=== PATIENT | male | born 1975 | race Caucasian/White ===

== ENCOUNTER 2022-04-27 17:09 | Emergency (ER) | payer BC, SELFPAY ==
[2022-04-27 17:23] VITALS: PULSE 65; RESP 14; TEMP 36.8; O2SAT 99
--- NOTE | 2022-04-27 17:44 | ED.BACK ---
HPI - Back Pain/Injury General Chief Complaint: Back Pain/Injury Stated Complaint: back pain Time Seen by Provider: 04/27/22 17:32 History of Present Illness HPI Narrative: Patient is a 47-year-old male here for evaluation of back pain. Patient was seated, bent over the kitchen table, helping his son with his home life, when he felt his back give out . Patient states the pain is present in his right lower back and occasionally radiate down his right lower extremity. He describes it as a sharp shooting pain. Has been able to take a few steps but states it is painful. Patient took a [place] and methocarbamol without significant relief. He has had a history of similar sensation for months ago, saw an orthopedist at [facility], was given Medrol Dosepak and methocarbamol with relief of his symptoms. He had an x-ray but has not yet had an MRI, was told if the pain comes back he should likely get more imaging. Patient denies any saddle anesthesia, incontinence or retention of bowel or bladder, fevers or chills, IV drug use. Related Data Allergies Allergy/AdvReac Type Severity Reaction Status Date / Time No Known Allergies Allergy Verified 04/27/22 18:03 Review of Systems Review of Systems: Gen: Denies fevers or chills Eyes: Denies eye pain or visual change ENT: Denies congestion Respiratory: Denies shortness of breath or cough CV: Denies chest pain or palpitations GI: Denies abdominal pain nausea, emesis or diarrhea denies burning, urgency, frequency or hematuria Musculoskeletal: Reports back pain. Neuro: Denies numbness, tingling, weakness or focal weakness Skin: Denies rash Except as documented, all other systems reviewed and negative Exam Narrative: APPEARANCE: Seated in wheelchair, nontoxic-appearing Head: Normocephalic and atraumatic. EYES: PERRLA/EOMI, conjunctivae clear NOSE: No nasal drainage EARS: External ear normal in appearance THROAT: Oropharynx is clear. Mucous membranes are moist. NECK: Supple. No adenopathy, no masses. RESPIRATORY: Airway patent, respirations nonlabored. Clear to auscultation bilaterally, no rales, rhonchi, wheezing. CARDIOVASCULAR: Regular rate and rhythm without murmurs, rubs, or gallops. ABDOMINAL: Normoactive bowel sounds. Soft, nontender, nondistended. No rebound tenderness or guarding. MUSCULOSKELETAL: No bony tenderness to midline of C, T or L-spine. Moving all extremities. NEURO: Normal speech. No focal neurologic deficits. SKIN: Skin is warm and dry. No rashes. PSYCHIATRIC: Normal affect/mood. Course Vital Signs Vital signs: Vital Signs Temperature 98.2 F 04/27/22 17:23 Pulse Rate 65 04/27/22 17:23 Respiratory Rate 14 04/27/22 17:23 Pulse Oximetry 99 04/27/22 17:23 Oxygen Delivery Room Air 04/27/22 17:23 Temperature 98.2 F 04/27/22 17:23 Pulse Rate 65 04/27/22 17:23 Respiratory Rate 14 04/27/22 17:23 Pulse Oximetry 99 04/27/22 17:23 Oxygen Delivery Room Air 04/27/22 17:23 MDM - Back Pain/Injury MDM Narrative Medical decision making narrative: 47-year-old male here for evaluation of low back pain over the past several hours. He is nontoxic-appearing and he has no midline tenderness on exam. diagnoses includes lumbago versus musculoskeletal spasm / strain versus sciatica. No back pain red flags on history or physical. Presentation not consistent with malignancy (lack of history of malignancy, lack of B symptoms), fracture (no trauma, no bony tenderness to palpation), cauda equina (no bowel or urinary incontinence/retention, no saddle anesthesia, no distal weakness), AAA, viscus perforation, osteomyelitis or epidural abscess (no IVDU, vertebral tenderness), renal colic, pyelonephritis (afebrile, no CVAT, no urinary symptoms). Given the clinical picture, no indication for imaging at this time. He was feeling improved after Toradol, prednisone and lidocaine patches in the ED. He has seen an orthopedist in the past for his pain, encouraged him
[2022-04-27] MEDS: predniSONE 20 MG TABLET 40 MG PO (18:05)
[2022-04-27] MEDS: KETOROLAC 30 MG/ML VIAL (*BKC) IM (18:06)
[2022-04-27] MEDS: LIDOCAINE 5% PATCH 1 PATCH TRANSDERM (18:06)
== END 2022-04-27 19:18 | disposition home or self-care (01) ==
PROVIDERS: Emergency Provider Emergency Medicine
DX: M54.16 Radiculopathy, lumbar region (principal)
CPT/HCPCS: 96372; 99283; A9270; J1885; J7512